=== PATIENT | male | born 1990 | race Caucasian/White ===

== ENCOUNTER 2024-01-28 04:15 | Emergency (ER) | payer OTHER ==
[~2024-01-28] VITALS: Ht 172.7 cm; Wt 72.6 kg
[2024-01-28 04:19] VITALS: BP 132/82; PULSE 97; RESP 16; TEMP 97; O2SAT 98
== END 2024-01-28 05:17 ==
LOC: MED 04:15
DX: S20.211A Contusion of right front wall of thorax, initial encounter (principal); V89.2XXA Person injured in unspecified motor-vehicle accident, traffic, initial encounter; Y93.89 Activity, other specified; Y92.89 Other specified places as the place of occurrence of the external cause; Y99.8 Other external cause status
CPT/HCPCS: 71045; 93005; 99283